=== PATIENT | male | born 1965 | race Caucasian/White ===

== ENCOUNTER 2021-02-16 13:07 | Outpatient (REF) | payer SELFPAY ==
[2021-02-16 15:56] LABS: Binax Now Covid-19 Ag Negative (Negative)
[2021-02-16 15:57] LABS: Binax Internal Control QC Valid
== END 2021-02-16 13:08 | disposition home or self-care (01) ==
LOC: HO.LAB 13:07
PROVIDERS: Visit Provider Internal Medicine
DX: Z20.822 Contact with and (suspected) exposure to COVID-19 (principal)
CPT/HCPCS: 36415; C9803